=== PATIENT | female | born 1995 | race African-American/Black ===

== ENCOUNTER 2024-11-15 10:42 | Emergency (ER) | payer OTHER ==
[~2024-11-15] VITALS: Ht 165.1 cm; Wt 97.5 kg
[2024-11-15 10:55] VITALS: TEMP 98.3
[2024-11-15] MEDS ORDERED: IOPAMIDOL 370 MG/ML 100 ML INFUS..BTL INJ ONE (11:13)
[2024-11-15] MEDS: ONDANSETRON HCL INJ 2MG/ML 2ML 2 MG/ML VIAL IV STA (11:16)
[2024-11-15] MEDS: KETOROLAC TROMETHAMINE 30 MG/ML VIAL IV STA (11:16)
[2024-11-15] MEDS: SODIUM CHLORIDE 0.9% 1000ML 1,000 ML IV ONE (11:16)
[2024-11-15] MEDS ORDERED: CIPRO500 MG PO (12:47)
[2024-11-15 12:49] VITALS: PULSE 62; RESP 18
[2024-11-15 12:55] VITALS: BP 120/72; O2SAT 100
== END 2024-11-15 12:52 | disposition home or self-care (01) ==
LOC: FSED 10:52
DX: R10.30 Lower abdominal pain, unspecified (principal); N39.0 Urinary tract infection, site not specified; R19.7 Diarrhea, unspecified
CPT/HCPCS: 74177; 80048; 80076; 81003; 81025; 85025; 99284; J1885; J2405; J7030; Q9967